=== PATIENT | female | born 1970 | race African-American/Black ===

== ENCOUNTER 2016-04-27 09:08 | Inpatient (IN) | payer MEDICAID ==
[~2016-04-27] VITALS: Ht 162.6 cm; Wt 144.7 kg
[~2016-04-27 09:08] MED LIST: ALBU18
[2016-04-27] MEDS ORDERED: cefTRIAXone 1GM/50ML D5W 50 ML IV ONE (10:45)
[2016-04-27 11:01] LABS: Basophils # (auto) 0 uL; Basophils % (auto) 0.1 % (0.0-2.0); DEFINITIVE VIEW TRANSMISSION; Eosinophils # (auto) 0.2 uL; Eosinophils % (auto) 4.2 % (0.0-7.0); Hematocrit 33.4 % (36.0-46.0); Hemoglobin 10.6 g/dL (12.2-16.2); Lymphocytes # (auto) 1.3 uL; Lymphocytes % (auto) 30.1 % (10.0-50.0); Mean Corpuscular Hemoglobin 24.7 pg (28.0-32.0); Mean Corpuscular Hgb Conc. 31.8 g/dL (32.0-36.0); Mean Corpuscular Volume 77.7 fL (80.0-100.0); Mean Platelet Volume 7.4 fL (7.4-10.4); Monocytes # (auto) 0.4 uL; Monocytes % (auto) 8.5 % (0.0-12.0); Neutrophils # (auto) 2.5 uL; Neutrophils % (auto) 57.1 % (37.0-80.0); Platelet Count (auto) 376 10^3/uL (140-450); White Blood Cell 4.3 10^3/uL (4.4-10.8)
[2016-04-27 11:18] LABS: Albumin 3.4 g/dL (3.4-5.0); BUN/Creatinine Ratio 19.2; Bilirubin, Total 0.2 mg/dL (0.2-1.0); Calcium 8.9 mg/dL (8.5-10.1); Potassium 3.5 mmol/L (3.5-5.1); Total Protein 7.4 g/dL (6.4-8.2)
[2016-04-27] MEDS ORDERED: VANCOMYCIN 1GM/250ML D5W 250 ML IV ONE (11:30)
[2016-04-27] MEDS ORDERED: PROMETHAZINE HCL 25 MG/ML 1ML IV PRN (14:45)
[2016-04-27] MEDS ORDERED: LACTULOSE 20Gm/30ML SOLN PO PRN (14:45)
[2016-04-27] MEDS ORDERED: NITROGLYCERIN 0.4 MG SL TAB SL PRN (14:45)
[2016-04-27] MEDS ORDERED: TEMAZEPAM 15 MG CAP PO PRN (14:45)
[2016-04-27] MEDS ORDERED: MORPHINE SULF INJ 2 MG/ML SYRINGE 1ML IV PRN ×2 (14:45)
[2016-04-27] MEDS ORDERED: ACETAMINOPHEN 500 MG TAB PO PRN (14:45)
[2016-04-27] MEDS ORDERED: LORazepam 0.5 MG TAB PO PRN (14:45)
[2016-04-27] MEDS ORDERED: CLINDAMYCIN 600MG IV 50 ML IV ONE (15:00)
[2016-04-27] MEDS ORDERED: ENOXAPARIN SOD 40 MG/0.4 ML SYRINGE SC ONE (15:00)
[2016-04-27] MEDS: SODIUM CHLORIDE 0.9% 1,000 ML IV SCH ×3 (15:06→17:56)
[2016-04-27 15:15] LABS: Urine Bilirubin Negative (Negative); Urine Blood Negative /uL (Negative); Urine Color Yellow (Yellow); Urine Glucose Normal (Normal); Urine Ketone Negative (Negative); Urine Nitrite Negative (Negative); Urine RBC <1 /hpf (0 - 4); Urine Squamous Epithelial Cell FEW /hpf (<5); Urine Urobilinogen Normal (Negative)
[2016-04-27] MEDS ORDERED: ALBUTEROL SULF 2.5 MG/0.5ML(0.5%) NEB SOLN NEB PRN (15:45)
[2016-04-27 15:50] VITALS: BP 139/89
[2016-04-27] MEDS ORDERED: GABA300C8 PO (16:27)
[2016-04-27] MEDS ORDERED: TRIA37.575 PO (16:27)
[2016-04-27] MEDS ORDERED: TRIAPOW43 PO (16:27)
[2016-04-27] MEDS ORDERED: LID35TP EX (16:27)
[2016-04-27] MEDS ORDERED: ATOR40TA52 PO (16:27)
[2016-04-27] MEDS ORDERED: AML5T PO (16:27)
[2016-04-27] MEDS ORDERED: NOR5T PO (16:27)
[2016-04-27] MEDS ORDERED: POTA10TA79 PO (16:27)
[2016-04-27] MEDS ORDERED: IOHEXOL 350 MG/ML 100ML IJ ONE (19:40)
[2016-04-27 20:58] VITALS: BP 134/66
[2016-04-27] MEDS: CLINDAMYCIN 600MG IV 50 ML IV SCH (21:34)
[2016-04-27] MEDS: HYDROcodone-ACET 5/325MG TAB PO PRN (21:35)
[2016-04-27] MEDS: ENOXAPARIN SOD 150 MG/1 ML SYRINGE SC SCH (23:00)
[2016-04-28] MEDS: CLINDAMYCIN 600MG IV 50 ML IV SCH ×3 (05:25→22:31)
[2016-04-28 05:35] VITALS: BP 115/67
[2016-04-28 06:10] LABS: Cholesterol 243 mg/dL (<200); HDL Cholesterol 82 mg/dL (40-59); LDL Cholesterol 149 mg/dL (<100); Triglycerides 115 mg/dL (<150)
[2016-04-28 07:00] VITALS: BP 96/48
[2016-04-28] MEDS: HYDROcodone-ACET 5/325MG TAB PO PRN ×2 (08:14→21:16)
[2016-04-28] MEDS ORDERED: ENOXAPARIN SOD 40 MG/0.4 ML SYRINGE SC SCH (10:00)
[2016-04-28] MEDS: cefTRIAXone 1GM/50ML D5W 50 ML IV SCH (10:56)
[2016-04-28] MEDS: ENOXAPARIN SOD 150 MG/1 ML SYRINGE SC SCH ×2 (10:56→22:29)
[2016-04-28] MEDS: SODIUM CHLORIDE 0.9% 1,000 ML IV SCH (11:04)
[2016-04-28 12:00] VITALS: BP 108/58
[2016-04-28] MEDS: DOXYCYCLINE 100 MG TAB/CAP PO SCH ×2 (15:18→22:28)
[2016-04-28 16:40] VITALS: BP 123/57
[2016-04-28 22:21] VITALS: BP 129/86
[2016-04-28] MEDS: DOCUSATE SOD 100 MG CAP PO SCH (22:29)
[2016-04-29 02:54] VITALS: BP 129/86
[2016-04-29 05:21] VITALS: BP 100/55
[2016-04-29] MEDS: CLINDAMYCIN 600MG IV 50 ML IV SCH (06:03)
[2016-04-29 09:00] VITALS: BP 126/65
[2016-04-29] MEDS: ENOXAPARIN SOD 150 MG/1 ML SYRINGE SC SCH (09:40)
[2016-04-29] MEDS: DOXYCYCLINE 100 MG TAB/CAP PO SCH (09:40)
[2016-04-29] MEDS: cefTRIAXone 1GM/50ML D5W 50 ML IV SCH (09:40)
[2016-04-29] MEDS: DOCUSATE SOD 100 MG CAP PO SCH (09:40)
[2016-04-29 13:00] VITALS: BP 115/66
== END 2016-04-29 13:20 | disposition home or self-care (01) | DRG 383 ==
LOC: ER 09:08 → TELE 09:09 → TELE-EAST 16:08
PROVIDERS: ADMIT Internal Medicine; ATTEND Internal Medicine
DX: L03.116 Cellulitis of left lower limb (principal); Z68.43 Body mass index [BMI] 50.0-59.9, adult; I10 Essential (primary) hypertension; E66.01 Morbid (severe) obesity due to excess calories; D72.819 Decreased white blood cell count, unspecified; E78.5 Hyperlipidemia, unspecified; J45.909 Unspecified asthma, uncomplicated; Z82.49 Family history of ischemic heart disease and other diseases of the circulatory system; Z83.3 Family history of diabetes mellitus; Z87.891 Personal history of nicotine dependence; M54.9 Dorsalgia, unspecified; G89.29 Other chronic pain; D25.9 Leiomyoma of uterus, unspecified; V89.2XXA Person injured in unspecified motor-vehicle accident, traffic, initial encounter; R59.9 Enlarged lymph nodes, unspecified; Z86.718 Personal history of other venous thrombosis and embolism; Z71.89 Other specified counseling
CPT/HCPCS: 36415; 71010; 71275; 78582; 80053; 80061; 81001; 85025; 85049; 85379; 85652; 87040; 93970; 96365; 96367; 96372; 96375; J0696; J3490